=== PATIENT | female | born 1990 | race Caucasian/White ===

== ENCOUNTER 2019-10-03 19:32 | Emergency (ER) | payer OTHER, SELFPAY ==
--- NOTE | ~2019-10-03 | XR_ITS ---
EXAMINATION: XR chest 2V DATE: 10/03/2019 20:25 INDICATION: Left-sided chest pain TECHNIQUE: PA and lateral views of the chest are obtained. COMPARISON: 06/16/2014 FINDINGS: The lungs are free of acute opacities. There is no pleural effusion or pneumothorax. The ca rdiomediastinal silhouette is normal. There is mild thoracic spondylosis. IMPRESSION: 1. No acute cardiopulmonary abnormality. Reviewed, dictated and finalized at location A.
[2019-10-03 19:35] VITALS: BP 156/101; PULSE 108; RESP 18; TEMP 37.2; O2SAT 100
--- NOTE | 2019-10-03 19:39 | ECG_ITS ---
Measurements Intervals [place] Rate: 110 P: 153 ND: 150 QRS: -26 QRSD: 82 T: 149 QT: 270 QTc: 366 Interpretive Statements ECTOPIC ATRIAL TACHYCARDIA CONSIDER HIGH LATERAL INFARCT, AGE INDETERMINATE BASELINE ARTIFACT- II ABNORMAL ECG Electronically Signed On 10-04-2019 7:08:28 CDT by David Avitia D.O.
[2019-10-03 19:46] VITALS: BP 172/100; PULSE 108; RESP 20; O2SAT 96
--- NOTE | 2019-10-03 19:55 | ED.CHESTPAIN ---
HPI - Chest Pain General Chief Complaint: Chest Pain Stated Complaint: chest pain Time Seen by Provider: 10/03/19 19:53 Source: patient Mode of arrival: ambulatory Limitations: no limitations History of Present Illness HPI narrative: Patient is a 29-year-old female who presents for evaluation of chest pain. Patient reports a history intermittent chest pain over the past several years, but has notably had chest pain over the left side of her chest with radiation to the back for the past 8 days. Pain is mostly chronic in nature. Occasionally she will feel short of breath. She denies pleuritic chest pain. She denies leg swelling or pain. No history of blood clot. Patient is not on any control. She does smoke. Patient states she has a history of lung polyps for which her COMPANY MARKER had referred her to a compliance professional for years ago, but she never sought follow-up. Patient denies fever, chills, congestion, no productive cough. Pain is dull, aching in nature, currently present while the patient is in the room. Patient states that her symptoms are worse whenever she is stressed or tearful. Related Data Allergies Allergy/AdvReac Type Severity Reaction Status Date / Time No Known Allergies Allergy Verified 10/03/19 19:45 Review of Systems Review of Systems: Narrative: CONSTITUTIONAL: Denies fever, chills, or sweats. EYES: Denies visual changes ENT: Denies rhinorrhea, congestion, sore throat, or otalgia. CARDIOVASCULAR: Reports chest pain, denies palpitations or edema RESPIRATORY: Reports dry cough, no current shortness of breath GASTROINTESTINAL: Denies abdominal pain, nausea, vomiting, or diarrhea. GENITOURINARY: Denies dysuria or hematuria. SKIN: Denies rash or itching. MUSCULOSKELETAL: Denies back pain, joint pain, or myalgia. NEUROLOGIC: Denies headache, numbness, or weakness. PSYCHIATRIC: Reports history of anxiety [facility] Surgical History Surgical History (Updated 10/03/19 @ 20:08 by Irene Corrales MD) H/O section Hx of cholecystectomy Social History Social History (Updated 10/03/19 @ 20:09 by Irene Corrales MD) Smoking status: Former smoker Tobacco type: cigarettes Smoking end date: 10/01/19 Alcohol intake: current Substance use: current Substance use type: marijuana Living arrangements: with family Gender identity (if verbalized by the patient): Female Exam Narrative: Exam Narrative: GENERAL: Awake, alert, conversant, tearful, anxious HEAD: Normocephalic, atraumatic. EYES: PERRLA and EOMI. ENT: Nares clear, no rhinorrhea or epistaxis. Mucous membranes moist. NECK: Supple. CHEST: No respiratory distress, breathing even and non labored, reproducible left-sided chest wall pain HEART: Regular rate, sinus rhythm ABDOMEN:Non distended, non tender EXTREMITIES: Normal range of motion. No edema. SKIN: Warm, dry, no rash. NEURO:No focal deficits. Alert and oriented x3 Course Vital Signs Vital signs: Vital Signs Temperature 37.2 C 10/03/19 19:35 Pulse Rate 108 H 10/03/19 19:35 Respiratory Rate 18 10/03/19 19:35 Blood Pressure 156/101 H 10/03/19 19:35 Pulse Oximetry 100 10/03/19 19:35 Temperature 37.2 C 10/03/19 19:35 Pulse Rate 108 H 10/03/19 19:46 Respiratory Rate 20 10/03/19 19:46 Blood Pressure 172/100 H 10/03/19 19:46 Pulse Oximetry 96 10/03/19 19:46 MDM - Chest Pain MDM Narrative Medical decision making narrative: Patient's EKG and labs are without significant high risk changes. Cardiac risk factors reviewed. Patient is felt low risk for ACS and reasonable for further risk stratification testing as an outpatient. Pain was not sudden or maximal or onset without tearing or ripping quality. No other signs or symptoms to suggest aortic dissection. A low risk well's criteria is noted, PE is felt to be unlikely, d-dimer not detected. No pneumonia seen on evaluation today. Pt with elevated BP would likely benefit from daily anti hypertensive. Wi
[2019-10-03 20:00] LABS: Basophils Absolute Auto 0.1 K/mm3 (0.0-0.1); Basophils Percent Auto 0.7 % (0.2-1.2); Eosinophils Absolute Auto 0.2 K/mm3 (0-0.3); Hematocrit 44.7 % (37.0-47.0); Hemoglobin 14.5 g/dL (12.0-15.0); Immature Granulocyte Absolute 0.02 K/mm3 (0.00-0.031); Immature Granulocyte Percent A 0.2 % (0-0.5); Lymphocytes Absolute Auto 4.22 K/mm3 (0.9-3.2); Lymphocytes Percent Auto 39.4 % (18.3-44.2); Mean Corpuscular HGB Conc 32.4 g/dl (32-36); Mean Corpuscular Hemoglobin 29.5 pg (26-34); Mean Corpuscular Volume 90.9 fl (80-100); Mean Platelet Volume 9.7 fl (7.4-10.4); Monocytes Absolute Auto 0.7 K/mm3 (0.1-0.6); Monocytes Percent Auto 6.1 % (2.6-8.5); Neutrophils Absolute Auto 5.6 K/mm3 (1.3-6.7); Neutrophils Percent Auto 51.6 % (45.5-73.1); Platelet Count Result 385 k/mm3 (150-375); Red Blood Count 4.92 M/mm3 (4.2-5.4); Red Cell Distribution Width 14.1 % (11.5-14.5); White Blood Count 10.7 K/mm3 (4.5-10.0)
[2019-10-03 20:09] LABS: Prothrombin Time 13.1 Seconds (11.1-14.7)
[2019-10-03 20:10] LABS: Partial Thromboplastin Time 26.7 SECONDS (22.3-36.8)
[2019-10-03 20:12] LABS: Anion Gap 11.9 mmol/L (7-16); Blood Urea Nitrogen 14 mg/dL (7-17); Calcium 9.1 mg/dL (8.4-10.2); Carbon Dioxide 30 mmol/L (22-30); Chloride 99 mmol/L (98-107); Estimated CRCL calculation 87 ml/min; Estimated Glomerular Filt Rate > 60; Glucose 91 mg/dL (65-105); Potassium 3.9 mmol/L (3.4-5.0); Sodium 137 mmol/L (137-145)
[2019-10-03 20:23] LABS: Troponin I < 0.012 ng/mL (0.000-0.034)
[2019-10-03 20:31] LABS: D Dimer 0.27 ug/mL (<0.48)
[2019-10-03] MEDS: ASPIRIN 81 MG CHEWABLE TABLET 324 MG PO (20:43)
[2019-10-03] MEDS: ONDANSETRON INJ 4 MG/2 ML VIAL IV PUSH (20:44)
[2019-10-03] MEDS: SODIUM CHLORIDE 0.9% IV 1,000 ML 999 ML IV CONT (20:44)
[2019-10-03] MEDS: MORPHINE SULFATE 2 MG/ML INJ IV PUSH (20:45)
[2019-10-03 21:26] VITALS: BP 141/100; PULSE 86; RESP 18; O2SAT 98
--- NOTE | 2019-10-07 20:51 | PC.NURSE ---
Late Entry Patient's NS bolus started on 10/03/2019 at 2006 and finished infusing at 2100 on 10/03/2019. Patient received the whole liter of fluids.
== END 2019-10-03 21:28 | disposition home or self-care (01) ==
PROVIDERS: Emergency Provider Emergency Medicine; PCP Internal Medicine
DX: R07.89 Other chest pain (principal); Z87.891 Personal history of nicotine dependence; I47.1 Supraventricular tachycardia; R94.31 Abnormal electrocardiogram [ECG] [EKG]
CPT/HCPCS: 36415; 71046; 80048; 84484; 85025; 85380; 85610; 85730; 93005; 96374; 96375; 99284; A9270; J2270; J2405; J7030

== ENCOUNTER 2024-08-11 17:45 | Emergency (ER) | payer OTHER, SELFPAY ==
--- OUTSIDE RECORDS SUMMARY | 2024-08-11 17:48 | XMS_ITS | Clinical Summary ---
Author Organization [facility] [employer] Address [address] [place] [address] Care Team Providers Care Prep Person Name Role Phone Bayron Choudhary MD Primary Care Provider [phone] Source Comments [facility] [employer],non-owned Affiliates and Associated Physician Practices is amultiple site organization consisting of ambulatory clinics and hospital sitesin [place], [place], [place] and [place]. This disclosure is being madepursuant to the Care Everywhere program and may not contain all information available regarding this patient. Last updated 17.[facility] [employer] Allergies No known active allergies Medications * Be aware that medications may not be up to date on this document. Alwaysverify current medications with the patient. Calcium Carbonate-Lorena min D3 600-400 MG-UNIT Take 1 Tab by mouth once daily Active Nydmmbou-Fgg-E e-FA ( VITAMIN WITH IRON) tablet Take 1 Tab by mouth once daily Active docusate sodium (COLACE) 100 MG capsule Take 1 Cap by mouth 2 times daily 100 Cap 3 7 Active acetaminophen (TYLENOL) 500 MG tablet Take 1,000 mg by mouth every 6 hours as needed for Fever, Pain or Headache Maximum allowable Acetaminophen amount = 4 Grams (4000 mg) / 24 hours. Active raNITIdine (ZANTAC) 150 MG tablet Take 1 Tab by mouth 2 times daily 60 Tab 3 7 Active HYDROXYprogest erone caproate (RAIMUNDO) 250 MG/ML injection Inject 250 mg into muscle every 7 days Active ondansetron, disintegrating , (ZOFRAN ODT) 4 MG tablet Take 1 tablet by mouth every 6 hours as needed for Nausea/Vomiting Allow tablet to dissolve on the tongue 20 tablet 3 7 Active Additional Information Patient not taking.Reported on 02/11/2017 oxyCODONE-acet aminophen (PERCOCET) 5-325 MG tablet Take 1 tablet by mouth every 6 hours as needed for Pain 30 tablet 7 Active oxyCODONE-acet aminophen (PERCOCET) 5-325 MG tablet Take 1 tablet by mouth every 6 hours as needed for Pain 28 tablet 7 Active ibuprofen (MOTRIN) 600 MG tablet Take 1 tablet by mouth every 6 hours as needed for Pain 60 tablet 2 7 Active docusate sodium (COLACE) 100 MG capsule Take 1 capsule by mouth 2 times daily 30 capsule 2 7 Active ferrous sulfate 325 (65 FE) MG tablet Take 1 tablet by mouth daily with breakfast 30 tablet 2 7 Active Vit-Fe Vsp-LY-Pwmcv (PNV PLUS MULTIVIT+DHA) 27-1 & 312 MG MISC Take 1 tablet by mouth once daily 30 Each 11 7 Active polyethylene glycol 3350 (MIRALAX) packet Take 17 g by mouth once daily 30 packet 1 7 Active Blood Pressure Monitoring (BLOOD PRESSURE CUFF) MISC Use 1 device once daily 1 Each 7 Active raNITIdine (ZANTAC) 150 MG tablet Take 1 tablet by mouth 2 times daily 60 tablet 5 7 Active Active Problems Patient Care Coordination No te Formatting of this note migh t be different from the original. [facility] [place] Problem Noted Date Diagnosed Date care following delivery 01/10 Hypertension complicating pr egnancy, delivered, current hospitalization 02/06/2017 Maternal obesity, delivered, current hospitaliza tion 02/06/2017 Hypertension complicating , third trime ster 01/31/2017 Chronic hypertension 01/30/2017 Excessive weight gain during in third trimester 12/13/2016 Cervical cerclage suture present 08/23/2016 Overview (08/23/2016): Modified Olivarez cerclage with knot at 12 o'clock; only one suture is present. Lola Marte MD 08/23/2016 11:49 AM Evaluate anatomy not seen on prior sonogram 04/2016 Obesity during 08/07/2016 Chronic anxiety 08/07/2016 Carpal tunnel syndrome 08/07/2016 Mood disorder 08/07/2016 Overview (08/07/2016): On meds for 3 years, stopped meds on her own Tobacco use 08/07/2016 History of low transverse section 08/07 Overview (01/24/2017): Breech G1 at 24.4 weeks - PTL with PTD History of delivery 08/07/2016 Overview (08/07/2016): G1 at 24.4 weeks - PTL with PTD Depression screen 08/07/2016 Overview (08/07/2016): EPDS score: Supervision of high-risk 07/15/2010 Overview (09/12/2016): BEST: Dr Barnett PNL: A+/I/-/- NR Ab: neg GCT: early 94 CF neg HIV: GBS: Dating: H/H/Plt: Hgb Elec: UDS: QS: CF: Pap: Gc/Chl: UCx: Breast/Bottle: Family Planning: Resolved Problems Problem Noted Date Diagnosed Date Resolved Date Threatened labor 07/15/2010 Elevated AFP 07/15/2010 08/07/2016 Overview (07/15/2010): Normal anatomy, declined amnio 1st trimester Vag. spotting Immunizations Immunization Administration Dates Next Due HEP B VACCINE ADOL/ADULT 2 DOSE 01/17/2009 INFLUENZA VACCINE, QUADR. (F LUZONE; FLULAVAL; FLUARIX; AFLURIA QUADRIVALENT; 6MO+), 0.5 ML (IIV4) 12/06/2016 TDAP (7yrs+) 12/06/2016,07/23/2010 Family History Medical History Relation Name Comments Diabetes Maternal Grandmother Relation Name Status Comments Maternal Grandmother Social History Tobacco Use Types Packs/Day Years Used Date Smoking Tobacco: Former Cigarettes Q uit: 06/23/2016 Smokeless Tobacco: Never Tobacco Cessation:Ready to Q uit: Yes; Counseling Given: Yes Alcohol Use Standard Drinks/Week Comments No 0 (1 standard drink = 0.6 oz pur e alcohol) Comments No Sex and Gender Information Value Date Recorded Sex Assigned at Not on file Legal Sex Female 11:38 AM BLASTING CONTRACT MINER Gender Identity Not on file Sexual Orientation Not on file Last Filed Vital Signs Vital Sign Reading Time Taken Comments Blood Pressure 154/82 02/11/2017 9:39 AM BLASTING CONTRACT MINER manual BP check Pulse 109 02/11/2017 9:32 AM BLASTING CONTRACT MINER Temperature 36.4 C (97.5 F) 02/09/2017 8:15 AM BLASTING CONTRACT MINER Respiratory Rate 18 02/09/2017 12:0 5 PM BLASTING CONTRACT MINER Oxygen Saturation 99% 02/09/2017 8:1 5 AM BLASTING CONTRACT MINER Inhaled Oxygen Concentration - - Weight 150.5 kg (331 lb 12. 8 oz) 02/11/2017 9:32 AM BLASTING CONTRACT MINER Height 162.6 cm (5' 4) 02/06/2017 10:0 0 AM BLASTING CONTRACT MINER Body Mass Index 56.95 02/06/2017 10:00 AM BLASTING CONTRACT MINER Plan of Treatment Health Maintenance Due Date Last Done Comments HIV SCREENING 02/06/2004 HEPATITIS C SCREENING 02/01/2007 HEPATITIS B VACCINE (2 of 3 - 19+ 3-dose series) 02/14/2009 01/17/2009 COVID-19 VACCINE (2023-2 5 season) 2023 DEPRESSION SCREENING 03/11/2024 INFLUENZA VACCINE (Season Ended) 2024 12/06/2016 DTAP/TDAP/TD VACCINES (3 - T d or Tdap) 12/06/2026 12/06/2016, 07/23/2010 ZOSTER VACCINE (1 of 2) 2039 HIB VACCINE Aged Out No longer eligi ble based on patient's age to complete this topic HPV VACCINE Aged Out No longer eligi ble based on patient's age to complete this topic MENINGOCOCCAL (Group B) VACCINE SHARED DECISION-MAKING Aged Out No longer eligible based on patient's age to complete this topic MENINGOCOCCAL GROUPS A/C/Y/W VACCINE Aged Out No longer eligible b ased on patient's age to complete this topic PNEUMOCOCCAL VACCINE Aged Out No long er eligible based on patient's age to complete this topic [place] [address] [address] [place] [address] Advance Directives * Full Code (Latest Code Status on File) Date Activated Date Inactivated Comments 2017 12:18 PM 02/09/2017 1:36 PM * Full Code Date Activated Date Inactivated Comments 01/30/2017 6:02 PM 01/31/2017 1:11 PM * Full Code Date Activated Date Inactivated Comments 01/17/2017 9:39 AM 01/17/2017 2:08 PM * Full Code Date Activated Date Inactivated Comments 11/15/2016 10:17 AM 11/15/2016 2:01 PM * Full Code Date Activated Date Inactivated Comments 07/15/2010 7:04 PM 07/25/2010 4:43 AM Care Teams Prep Person Relationship Specialty Start Date End Date Bayron Choudhary MD [address] [place] [id number] PCP - General Maternal and Medicine 11/15/16
--- OUTSIDE RECORDS SUMMARY | 2024-08-11 17:48 | XMS_ITS | Clinical Summary ---
Author Organization [facility] Address [address] [place] [address] Phone Care Team Providers Care Procurement Internship Name Role Phone Shon Griggs MD Primary Care Provider [phone] Allergies No known active allergies Medications ranitidine (ZANTAC) 150 MG Tablet Take 150 mg by mouth daily. Active HYDROcodone-acet aminophen (NORCO) 5-325 MG Tablet Take 1-2 Tabs by mouth every 4 hours as needed for Pain. 20 Tab 0 01/30/2015 Active LORazepam (ATIVAN) 0.5 MG Tablet Take 0.5 mg by mouth every 6 hours as needed for Anxiety. Active naproxen (NAPROSYN) 500 MG Tablet Take 1 Tab by mouth 2 times daily (with meals). 60 Tab 0 06/23/2015 Active Social History Tobacco Use Types Packs/Day Years Used Date Smoking Tobacco: Every Day Cigarettes Alcohol Use Standard Drinks/Week Comments No 0 (1 standard drink = 0.6 oz pur e alcohol) Comments No Sex and Gender Information Value Date Recorded Sex Assigned at Not on file Legal Sex Female 12:30 AM CDT Gender Identity Not on file Sexual Orientation Not on file Last Filed Vital Signs Vital Sign Reading Time Taken Comments Blood Pressure 126/63 06/23/2015 9:39 AM CDT Pulse 84 06/23/2015 9:39 AM CDT Temperature 36.5 C (97.7 F) 06/23/2015 9:39 AM CDT Respiratory Rate 16 06/23/2015 9:39 AM CDT Oxygen Saturation 99% 06/23/2015 9:39 AM CDT Inhaled Oxygen Concentration - - Weight 83.5 kg (184 lb) 06/23/2015 9:39 AM CDT Height 162.6 cm (5' 4) 06/23/2015 9:39 AM CDT Body Mass Index 31.58 06/23/2015 9:39 AM CDT Plan of Treatment Not on file Insurance MEDICAID [facility] Care Teams Procurement Internship Relationship Specialty Start Date End Date Shon Griggs MD [address] [place] [address] PCP - General Family Medicine 01/30/15
--- OUTSIDE RECORDS SUMMARY | 2024-08-11 17:48 | XMS_ITS | CONTINUITY OF CARE DOCUMENT ---
Author Name samia gracia Address Unknown Organization [facility] Address [address] [place] [address] Phone [phone] Care Team Providers Care Client Experience Consultant Name Role Phone Srinivasan Dick MD Unavailable [phone] Srinivasan Dick MD Unavailable [phone] INSURANCE PROVIDERS Payer name Policy type / Coverage type Elder aguilar [place] [employer] Medicaid 1 [id number]
[2024-08-11 17:52] VITALS: BP 161/76; PULSE 95; RESP 16; TEMP 36.4; O2SAT 100
--- NOTE | 2024-08-11 18:36 | ED_ITS ---
HPI - Anxiety General Chief Complaint: Anxiety Stated Complaint: panic attacks x 2 days, out of meds Time Seen by Provider: 08/11/24 18:34 Source: patient and family Mode of arrival: ambulatory Limitations: no limitations History of Present Illness HPI narrative: Patient presents with concern for panic attacks over the past 2 days. She has a longstanding history of anxiety and had previously been on medication but lost her insurance and has been out of her medication for approximately 1 year. She has been doing okay but recently she has been dealing with more anxiety, difficulty sleeping, and feeling that her ADHD is also unmanaged. She finds herself hyperventilating and with fingers tingling as result. She had an appointment scheduled with a mental health professional but they needed to reschedule it and for this reason her appointment is now on either August 13 or August 14. She usually goes to [facility] but presented there yesterday and they had difficulty drawing her blood and ultimately was not seen or given medications which she understands but she is trying to make it to her appointment and finding it difficult. She has been trying to change her diet. She states she used to be on Vyvanse but also Klonipin 0.5mg BID PRN. Related Data Allergies Allergy/AdvReac Type Severity Reaction Status Date / Time No Known Allergies Allergy Verified 10/03/19 19:45 PMFSH Past Medical History Medical History Anxiety Surgical History Surgical History (Updated 10/03/19 @ 20:08 by Irene Corrales MD) H/O section Hx of cholecystectomy Social History Social History (Updated 10/03/19 @ 20:09 by Irene Corrales MD) Smoking status: Former smoker Tobacco type: cigarettes Smoking end date: 10/01/19 Alcohol intake: current Substance use: current Substance use type: marijuana Living arrangements: with family Gender identity (if verbalized by the patient): Female Exam Narrative: GENERAL: Well-appearing, well-nourished, and in no acute distress. HEAD: Normocephalic, atraumatic. EYES: Non injected, non icteric ENT: Nares clear, no rhinorrhea or epistaxis. Gross auditory acuity intact. NECK: Supple. No meningismus. CHEST: Speaking in full sentences. No respiratory distress. HEART: Regular rate and rhythm. . ABDOMEN: Soft, nondistended. No rigidity or guarding. Not peritoneal EXTREMITIES: Normal range of motion. No lower extremity edema. SKIN: Warm, dry, no rash. NEURO: No focal deficits. Alert and oriented. Answering questions. Following commands. Normal speech without aphasia or dysarthria. PSYCH: Appearance: Well kempt. Behavior: Calm, good eye contact, in no acute distress. Affect: pleasant. Mood is congruent with affect. Speech: Appropriate rate, quantity and volume. Thought process: Linear. Does not appear to be responding to internal stimuli. Cognition: Normal. Insight: Good. Judgment: Good. Course Vital Signs Vital signs: Vital Signs Temperature 97.6 F 08/11/24 17:52 Pulse Rate 95 08/11/24 17:52 Respiratory Rate 16 08/11/24 17:52 Blood Pressure 161/76 H 08/11/24 17:52 Pulse Oximetry 100 08/11/24 17:52 Temperature 97.6 F 08/11/24 17:52 Pulse Rate 95 08/11/24 17:52 Respiratory Rate 16 08/11/24 17:52 Blood Pressure 161/76 H 08/11/24 17:52 Pulse Oximetry 100 08/11/24 17:52 MDM - Anxiety MDM Narrative Medical decision making narrative: Patient presents with report of panic attacks over the past 2 days. She has a history of anxiety, ADHD and lost her insurance and has been out of her medications for 1 year. Her symptoms have become more significant recently and she scheduled appointment with mental health professional but they had to cancel and reschedule her for either August 13 or . In the emergency department she is afebrile with vital signs notable for hypertension. Prescription monitoring database is reviewed which showed she last filled gabapentin in 2023 but no interval fills of any other substances. Weeks insulin discussed all the importance of keeping her upcoming appointment for long-term discussion of her symptoms and best possible management which may include therapy, medications. In the interim, it is reasonable to give a dose of clonazepam and give her a short course of this same medication as a bridge to get her to her longer-term care. She verifies understanding is in agreement with this plan. Stable for discharge. Differential Diagnosis Differential diagnosis: Likely hyperventilation, panic disorder and acute anxiety Discharge Plan Discharge Clinical Impression: Panic attacks, Encounter for medication refill Patient Disposition: Home Condition: Stable Instructions: Antibiotic Form, Anxiety (ED), Panic Attack (ED) Additional Instructions: Keep your upcoming scheduled mental health appointment. As we discussed, this is an important relationship and may be a better strategy for identifying underlying causes of your distress and how to best treat them fdc. If you are need of a primary care physician, the name of 1 is listed below. Return to the emergency department with any new worsening or unmanaged symptoms. Patient Language: Danish Prescriptions: New clonazepam [Klonopin] 0.5 mg tablet 0.5 mg PO BID Qty: 6 0RF No Action hydrochlorothiazide 12.5 mg tablet 12.5 mg PO DAILY 30 Days Qty: 30 0RF Follow-up/Referrals: PHYSICIAN,[facility] CONSULTANT [Primary Care Provider] - Sierra Pham DO [Physician] - Stand Alone Forms: Work/School Release IP Time of Disposition: 19:01
--- OUTSIDE RECORDS SUMMARY | 2024-08-11 18:53 | XMS_ITS | Clinical Summary ---
Author Organization [facility] Address [address] [place] [address] Care Team Providers Care Clinical Data Coordinator Name Role Phone Bayron Choudhary MD Primary Care Provider [phone] Source Comments [facility],non-owned Affiliates and Associated Physician Practices is amultiple site organization consisting of ambulatory clinics and hospital sitesin [place], [place], [place] and [place]. This disclosure is being madepursuant to the Care Everywhere program and may not contain all information available regarding this patient. Last updated 17.[facility] Allergies No known active allergies Medications * Be aware that medications may not be up to date on this document. Alwaysverify current medications with the patient. Calcium Carbonate-Lorena min D3 600-400 MG-UNIT Take 1 Tab by mouth once daily Active Zfeuoksk-Glw-M e-FA ( VITAMIN WITH IRON) tablet Take [...] breakfast 30 tablet 2 7 Active Vit-Fe Kku-NI-Kfcyk (PNV PLUS MULTIVIT+DHA) 27-1 & 312 MG [...] migh t be different from the original. [facility] 08/2016 Problem Noted Date Diagnosed Date care [...] on file Legal Sex Female 11:38 AM CUSTOMER ENGAGEMENT MANAGER Gender Identity Not on file Sexual Orientation Not on file Last Filed Vital Signs Vital Sign Reading Time Taken Comments Blood Pressure 154/82 02/11/2017 9:39 AM CUSTOMER ENGAGEMENT MANAGER manual BP check Pulse 109 02/11/2017 9:32 AM CUSTOMER ENGAGEMENT MANAGER Temperature 36.4 C (97.5 F) 02/09/2017 8:15 AM CUSTOMER ENGAGEMENT MANAGER Respiratory Rate 18 02/09/2017 12:0 5 PM CUSTOMER ENGAGEMENT MANAGER Oxygen Saturation 99% 02/09/2017 8:1 5 AM CUSTOMER ENGAGEMENT MANAGER Inhaled Oxygen Concentration - - Weight 150.5 kg (331 lb 12. 8 oz) 02/11/2017 9:32 AM CUSTOMER ENGAGEMENT MANAGER Height 162.6 cm (5' 4) 02/06/2017 10:0 0 AM CUSTOMER ENGAGEMENT MANAGER Body Mass Index 56.95 02/06/2017 10:00 AM CUSTOMER ENGAGEMENT MANAGER Plan of Treatment Health Maintenance Due Date [...] patient's age to complete this topic [place] [address] [place] [address] Advance Directives * Full Code (Latest Code [...] 7:04 PM 07/25/2010 4:43 AM Care Teams Clinical Data Coordinator Relationship Specialty Start Date End Date Bayron Choudhary MD [address] [place] [id number] PCP - General Maternal and Medicine 11/15/16
--- OUTSIDE RECORDS SUMMARY | 2024-08-11 18:53 | XMS_ITS | Clinical Summary ---
Author Organization [facility] Address [address] [place] [address] Phone Care Team Providers Care Water Systems Engineer Name Role Phone Shon Griggs MD Primary Care Provider [phone] Allergies No known active allergies Medications ranitidine [...] of Treatment Not on file Insurance MEDICAID [facility] Care Teams Water Systems Engineer Relationship Specialty Start Date End Date Shon Griggs MD [address] [place] [address] PCP - General Family Medicine 01/30/15
--- OUTSIDE RECORDS SUMMARY | 2024-08-11 18:53 | XMS_ITS | CONTINUITY OF CARE DOCUMENT ---
Author Name samia gracia Address Unknown Organization [facility] Address [address] [place] [address] Phone [phone] Care Team Providers Care Tracer Clerk Name Role Phone Srinivasan Dick MD Unavailable [phone] Srinivasan Dick MD Unavailable [phone] INSURANCE PROVIDERS Payer name Policy type / Coverage type Elder aguilar [place] [employer] Medicaid 1 [id number]
[2024-08-11] MEDS: clonazePAM (*CRX) 0.5 MG TABLET PO (19:03)
== END 2024-08-11 19:10 | disposition home or self-care (01) ==
PROVIDERS: Emergency Provider Student in an Organized Health Care Education/Training Program
DX: F41.0 Panic disorder [episodic paroxysmal anxiety] (principal); F41.9 Anxiety disorder, unspecified; Z87.891 Personal history of nicotine dependence; F12.90 Cannabis use, unspecified, uncomplicated
CPT/HCPCS: 99283; A9270

== ENCOUNTER 2024-09-09 12:37 | Emergency (ER) | payer BC, SELFPAY ==
[2024-09-09] VITALS (15 sets, daily range): BP systolic 102–170; BP diastolic 65–111; PULSE 96–124; RESP 18–20; TEMP 36.6–36.7; O2SAT 98–100
--- NOTE | ~2024-09-09 | US_ITS ---
EXAMINATION TYPE: US breast LT limited COMPARISON: NONE REASON FOR STUDY: lump, rule out infection TECHNIQUE: Targeted sonographic evaluation of the left breast was performed. INTERPRETATION: Sonographic imaging was performed at the area of clinical concern at the left breast 2:00-3:00 positi ons. No solid or cystic lesion identified. No evidence for abscess. No sonographic abnormality seen. IMPRESSION: No sonographic abnormality seen in the region scanned in the left breast. BI-RADS CATEGORY: BI-RADS 1: Negative Reviewed, dictated and finalized at location .
--- NOTE | ~2024-09-09 | XR_ITS ---
CHEST RADIOGRAPH, PA AND LATERAL CLINICAL HISTORY: chest pain . COMPARISON: 10/03/2019 and 06/16/2024 TECHNIQUE: PA and lateral views of the chest. FINDINGS The cardiomediastinal silhouette is unremarkable. A well-circumscribed 12 mm nodule within the right mid to lower lung field, likely a calcified granul luis, unchanged from 2020 examination. The remainder of the lungs are clear. IMPRESSION: Calcified granuloma, without focal infiltrate or effusion. If clinical suspicion persists, cross-sectional imaging (noncontrast enhanced CT examination of the c hest) is suggested for further evaluation. Reviewed, dictated and finalized at location A. IMPRESSION: Calcified granuloma, without focal infiltrate or effusion. If clinical suspicion persists, cross-sectional imaging (noncontrast enhanced C T examination of the chest) is suggested for further evaluation.
--- NOTE | 2024-09-09 12:42 | ECG_ITS ---
Test Date: 2024-09-09 12:45:05 Measurements Intervals [place] Rate: 101 P: 36 OK: 137 QRS: -9 QRSD: 73 T: 49 QT: 331 QTc: 430 Interpretive Statements SINUS TACHYCARDIA POSSIBLE LEFT ATRIAL ENLARGEMENT [-0.1mV P WAVE IN V1/V2] ABNORMAL RHYTHM ECG No previous ECG available for comparison Electronically Signed On 09-10-2024 16:31:15 CDT by Fatou Rodriguez
--- OUTSIDE RECORDS SUMMARY | 2024-09-09 12:42 | XMS_ITS | Clinical Summary ---
Author Organization [facility] Address [address] [place] [address] Phone Care Team Providers Care Inspector Floor Name Role Phone Shon Griggs MD Primary Care Provider [phone] Allergies No known active allergies Medications ranitidine [...] of Treatment Not on file Insurance MEDICAID [facility] Care Teams Inspector Floor Relationship Specialty Start Date End Date Shon Griggs MD [address] [place] [address] PCP - General Family Medicine 01/30/15
--- OUTSIDE RECORDS SUMMARY | 2024-09-09 12:42 | XMS_ITS | Clinical Summary ---
Author Organization [facility] Address [address] [place] [address] Care Team Providers Care Vice President Media Relations Name Role Phone Bayron Choudhary MD Primary Care Provider [phone] Source Comments [facility],non-owned Affiliates and Associated Physician Practices is amultiple site organization consisting of ambulatory clinics and hospital sitesin [place], [place], [place] and [place]. This disclosure is being madepursuant to the Care Everywhere program and may not contain all information available regarding this patient. Last updated 17.[facility] Allergies No known active allergies Medications * Be aware that medications may not be up to date on this document. Alwaysverify current medications with the patient. Calcium Carbonate-Lorena min D3 600-400 MG-UNIT Take 1 Tab by mouth once daily Active Bjlukndm-Vio-N e-FA ( VITAMIN WITH IRON) tablet Take [...] breakfast 30 tablet 2 7 Active Vit-Fe Zpp-PI-Peyru (PNV PLUS MULTIVIT+DHA) 27-1 & 312 MG [...] migh t be different from the original. [facility] 08/2016 Problem Noted Date Diagnosed Date care [...] on file Legal Sex Female 11:38 AM TRANSFER KNITTER Gender Identity Not on file Sexual Orientation Not on file Last Filed Vital Signs Vital Sign Reading Time Taken Comments Blood Pressure 154/82 02/11/2017 9:39 AM TRANSFER KNITTER manual BP check Pulse 109 02/11/2017 9:32 AM TRANSFER KNITTER Temperature 36.4 C (97.5 F) 02/09/2017 8:15 AM TRANSFER KNITTER Respiratory Rate 18 02/09/2017 12:0 5 PM TRANSFER KNITTER Oxygen Saturation 99% 02/09/2017 8:1 5 AM TRANSFER KNITTER Inhaled Oxygen Concentration - - Weight 150.5 kg (331 lb 12. 8 oz) 02/11/2017 9:32 AM TRANSFER KNITTER Height 162.6 cm (5' 4) 02/06/2017 10:0 0 AM TRANSFER KNITTER Body Mass Index 56.95 02/06/2017 10:00 AM TRANSFER KNITTER Plan of Treatment Health Maintenance Due Date [...] patient's age to complete this topic [place] [address] [place] [address] Advance Directives * Full Code (Latest Code [...] 7:04 PM 07/25/2010 4:43 AM Care Teams Vice President Media Relations Relationship Specialty Start Date End Date Bayron Choudhary MD [address] [place] [id number] PCP - General Maternal and Medicine 11/15/16
[2024-09-09 12:59] LABS: Hematocrit 43.4 % (37.0-47.0); Hemoglobin 14.2 g/dL (12.0-15.0); Immature Granulocyte Percent A 0.1 % (0-0.5); Lymphocytes Absolute Auto 2.40 K/mm3 (0.9-3.2); Mean Corpuscular HGB Conc 32.7 g/dl (32-36); Mean Corpuscular Hemoglobin 29.3 pg (26-34); Mean Corpuscular Volume 89.5 fl (80-100); Nucleated Red Blood Cells Absolute Auto 0.000 K/mm3 (0.0-0.012); Nucleated Red Blood Cells Perc 0.0 % (0.0-0.2); Platelet Count Result 397 k/mm3 (150-375); Red Blood Count 4.85 M/mm3 (4.2-5.4); White Blood Count 7.8 K/mm3 (4.5-10.0)
[2024-09-09 13:11] LABS: INR 1.0; Prothrombin Time 13.1 Seconds (11.1-14.7)
[2024-09-09 13:12] LABS: Alanine Aminotransferase 28 U/L (6-35); Albumin Level 4.6 g/dL (3.5-5.1); Alkaline Phosphatase 61 U/L (38-126); Anion Gap 11 mmol/L (4-12); Aspartate Amino Transferase 28 U/L (14-36); Bilirubin,Total 0.3 mg/dL (0.2-1.3); Blood Urea Nitrogen 13 mg/dL (7-17); Calcium 9.4 mg/dL (8.4-10.2); Carbon Dioxide 24 mmol/L (22-30); Chloride 104 mmol/L (98-107); Estimated CRCL calculation 107 ml/min; Estimated Glomerular Filt Rate > 60; Glucose 95 mg/dL (65-110); Lipase 66 U/L (23-300); Partial Thromboplastin Time 24.9 Seconds (22.3-36.8); Potassium 4.0 mmol/L (3.4-5.0); Sodium 139 mmol/L (137-145); Total Protein 8.1 g/dL (6.3-8.2)
--- OUTSIDE RECORDS SUMMARY | 2024-09-09 13:14 | XMS_ITS | Clinical Summary ---
Author Organization [facility] Address [address] [place] [address] Care Team Providers Care Stunt Person Name Role Phone Bayron Choudhary MD Primary Care Provider [phone] Source Comments [facility],non-owned Affiliates and Associated Physician Practices is amultiple site organization consisting of ambulatory clinics and hospital sitesin [place], [place], [place] and [place]. This disclosure is being madepursuant to the Care Everywhere program and may not contain all information available regarding this patient. Last updated 17.[facility] Allergies No known active allergies Medications * Be aware that medications may not be up to date on this document. Alwaysverify current medications with the patient. Calcium Carbonate-Lorena min D3 600-400 MG-UNIT Take 1 Tab by mouth once daily Active Evzzreme-Map-W e-FA ( VITAMIN WITH IRON) tablet Take [...] breakfast 30 tablet 2 7 Active Vit-Fe Cup-JP-Izjnv (PNV PLUS MULTIVIT+DHA) 27-1 & 312 MG [...] migh t be different from the original. [facility] 08/2016 Problem Noted Date Diagnosed Date care [...] on file Legal Sex Female 11:38 AM DATA COLLECTION INTERVIEWER Gender Identity Not on file Sexual Orientation Not on file Last Filed Vital Signs Vital Sign Reading Time Taken Comments Blood Pressure 154/82 02/11/2017 9:39 AM DATA COLLECTION INTERVIEWER manual BP check Pulse 109 02/11/2017 9:32 AM DATA COLLECTION INTERVIEWER Temperature 36.4 C (97.5 F) 02/09/2017 8:15 AM DATA COLLECTION INTERVIEWER Respiratory Rate 18 02/09/2017 12:0 5 PM DATA COLLECTION INTERVIEWER Oxygen Saturation 99% 02/09/2017 8:1 5 AM DATA COLLECTION INTERVIEWER Inhaled Oxygen Concentration - - Weight 150.5 kg (331 lb 12. 8 oz) 02/11/2017 9:32 AM DATA COLLECTION INTERVIEWER Height 162.6 cm (5' 4) 02/06/2017 10:0 0 AM DATA COLLECTION INTERVIEWER Body Mass Index 56.95 02/06/2017 10:00 AM DATA COLLECTION INTERVIEWER Plan of Treatment Health Maintenance Due Date [...] patient's age to complete this topic [place] [address] [address] [place] [address] Advance Directives * Full Code (Latest Code [...] 7:04 PM 07/25/2010 4:43 AM Care Teams Stunt Person Relationship Specialty Start Date End Date Bayron Choudhary MD [address] [place] [id number] PCP - General Maternal and Medicine 11/15/16
--- OUTSIDE RECORDS SUMMARY | 2024-09-09 13:14 | XMS_ITS | Clinical Summary ---
Author Organization [facility] Address [address] [place] [address] Phone Care Team Providers Care Cancer Researcher Name Role Phone Shon Griggs MD Primary Care Provider [phone] Allergies No known active allergies Medications ranitidine [...] of Treatment Not on file Insurance MEDICAID [facility] Care Teams Cancer Researcher Relationship Specialty Start Date End Date Shon Griggs MD [address] [place] [address] PCP - General Family Medicine 01/30/15
[2024-09-09] MEDS: ASPIRIN 81 MG CHEWABLE TABLET 324 MG PO (13:16)
[2024-09-09 13:24] LABS: Troponin I < 0.012 ng/mL (0.000-0.034)
[2024-09-09] MEDS: KETOROLAC 15 MG/ML VIAL (*BKC) IV PUSH (14:06)
[2024-09-09 14:08] LABS: Troponin I < 0.012 ng/mL (0.000-0.034)
[2024-09-09 14:15] LABS: Add Urine Microscopic? NO; Appearance Urine Clear (Clear); Glucose Urine UA Negative (Negative); Leukocyte Esterase Ur Negative LEU/UL (Negative); Nitrate Urine Negative (Negative); Specific Grav Ur 1.007 (1.001-1.035)
--- NOTE | 2024-09-09 14:24 | ED_ITS ---
HPI - Chest Pain General Chief Complaint: Chest Pain Stated Complaint: all over pain Time Seen by Provider: 09/09/24 13:04 History of Present Illness HPI narrative: Patient is a 34-year-old female who presents to the ER with chest pain. She reports it starts across her upper chest and radiates down to her left armpit and up to her left shoulder and jaw. Patient reports the symptoms have been going on for approximately 6 months but have worsened significantly over the past week. She endorses a history of anxiety, IBS, high blood pressure, high cholesterol. Patient reports she took ibuprofen this morning without much relief. She reports she vapes but does not smoke cigarettes. Patient reports she recently quit using marijuana. She endorses throbbing pain down her left arm. Patient denies consumption of energy drinks or reports she drinks about 1-2 cups of coffee per day. She reports she had a bowel movement yesterday and was normal for her. Patient denies shortness of breath, recent fevers, back pain, or urinary symptoms. Related Data Allergies Allergy/AdvReac Type Severity Reaction Status Date / Time No Known Allergies Allergy Verified 09/09/24 12:41 Review of Systems 2 Review of Systems: All systems reviewed & are unremarkable except as noted in HPI and below PMFSH Past Medical History Medical History Anxiety Surgical History Surgical History H/O section Hx of cholecystectomy Social History Social History Smoking status: Former smoker Tobacco type: cigarettes Smoking end date: 10/01/19 Alcohol intake: current Substance use: current Substance use type: marijuana Living arrangements: with family Gender identity (if verbalized by the patient): Female Exam 2 Narrative: GENERAL: Well appearing, well-nourished, non-toxic, in no acute distress. HEAD: Normocephalic, atraumatic. NECK: Supple. No adenopathy, no masses. RESPIRATORY: Airway patent, respirations nonlabored. Clear to auscultation bilaterally, no rales, rhonchi, wheezing. CARDIOVASCULAR: Regular rate and rhythm without murmurs, rubs, or gallops. Peripheral pulses 2+ and equal bilaterally. ABDOMINAL: Soft, nontender, nondistended, no hepatosplenomegaly. Normoactive BS. MUSCULOSKELETAL: Moves all extremities. Strength/ROM intact without gross deformities. SKIN: Warm, dry, normal color. No rashes. Small (1 cm) palpable lump in pt's L breast approximately 1 inch from the nipple in the 2pm position NEURO: A&O X3. Speech clear. Cranial nerves II-XII intact. No ataxic movements. PSYCHIATRIC: Appropriate mood and affect. Normal interaction. Course Vital Signs Vital signs: Vital Signs Temperature 36.6 C 09/09/24 12:39 Pulse Rate 124 H 09/09/24 12:39 Respiratory Rate 20 09/09/24 12:39 Blood Pressure 170/111 H 09/09/24 12:39 Pulse Oximetry 98 09/09/24 12:39 Oxygen Delivery Room Air 09/09/24 12:39 Temperature 36.7 C 09/09/24 13:18 Pulse Rate 96 09/09/24 13:18 Respiratory Rate 18 09/09/24 13:18 Blood Pressure 129/73 09/09/24 16:47 Pulse Oximetry 99 09/09/24 16:47 Oxygen Delivery Room Air 09/09/24 12:39 MDM - Chest Pain MDM Narrative Medical decision making narrative: Patient is a 34-year-old female who presents to the ER with chest pain. She reports it starts across her upper chest and radiates down to her left armpit and up to her left shoulder and jaw. Patient reports the symptoms have been going on for approximately 6 months but have worsened significantly over the past week. She endorses a history of anxiety, IBS, high blood pressure, high cholesterol. Patient reports she took ibuprofen this morning without much relief. She reports she vapes but does not smoke cigarettes. Patient reports she recently quit using marijuana. She endorses throbbing pain down her left arm. Patient denies consumption of energy drinks or reports she drinks about 1-2 cups of coffee per day. She reports she had a bowel movement yesterday and was normal for her. Patient denies shortness of breath, recent fevers, back pain, or urinary symptoms. She reports she is on Seroquel. Labs Ordered: CBC, CMP, TSH, troponin, UA, UDS, PTT, INR, D-dimer, lipase Imaging Ordered: Chest x-ray, ultrasound left breast Medications Ordered: Toradol 15mg IV Results: Patient's CBC, CMP, troponin, PTT, INR, D-dimer, and lipase are all within normal limits. Her UA did not indicate concerns for urinary tract infection. Patient's UDS was positive for marijuana, for which she admits to using recently. Diagnosis: atypical chest pain, L breast cyst Risks: HEART score: low risk HEART Score for Major Cardiac Events from [employer] on 09/09/2024 All calculations should be rechecked by clinician prior to use RESULT SUMMARY: 1 points Low Score (0-3 points) Risk of MACE of 0.9-1.7%. INPUTS: History ?> 0 = Slightly suspicious EKG ?> 0 = Normal Age ?> 0 = <45 Risk factors ?> 1 = 1-2 risk factors Initial troponin ?> 0 = <=Normal limit Patient Education/Shared MDM: Results of lab work and imaging shared with patient. She endorses mild improvement of symptoms following medication administration. It was explained to pt that her US results may not be back today and she can follow-up with her PCP. Patient strongly advised to maintain hydration status upon discharge and follow-up with their PCP as soon as possible. She reports she thinks her pain may be more muscular because it gets better or worse sometimes when she moves her arm. Pt advised to use Tylenol, Ibuprofen and a muscle relaxant at home to see if this helps relieve the pain. Pt will be discharged home with a prescription for Flexeril and Ibuprofen. She will not be sent home with a prescription for Hydroxyzine because there is increased risk of elongated QT when combined with Seroquel. Strict return precautions provided. Patient verbalized understanding and is in agreement with plan. Vital signs stable at time of discharge. All questions answered. Differential Diagnosis Differential diagnosis: Likely atypical chest pain, st elevation myocardial infarction and chest pain Lab Data Attestation: I reviewed the patient's lab results. 09/09/24 12:53 09/09/24 12:53 Labs: Lab Results 09/09/24 09/09/24 09/09/24 Range/Units 12:52 12:53 13:40 WBC 7.8 (4.5-10.0) K/mm3 RBC 4.85 (4.2-5.4) M/mm3 Hgb 14.2 (12.0-15.0) g/dL Hct 43.4 (37.0-47.0) % MCV 89.5 (80-100) fl MCH 29.3 (26-34) pg MCHC 32.7 (32-36) g/dl RDW 13.2 (11.5-14.5) % Plt Count 397 H (150-375) k/mm3 MPV 9.2 (7.4-10.4) fl Immature Gran % (Auto) 0.1 (0-0.5) % Neut % (Auto) 61.5 (45.5-73.1) % Lymph % (Auto) 30.8 (18.3-44.2) % [place] % (Auto) 6.0 (2.6-8.5) % Eos % (Auto) 1.2 (0-4.4) % Baso % (Auto) 0.4 (0.2-1.2) % Lymph # (Auto) 2.40 (0.9-3.2) K/mm3 [place] # (Auto) 0.5 (0.1-0.6) K/mm3 Eos # (Auto) 0.1 (0-0.3) K/mm3 Baso # (Auto) 0.0 (0.0-0.1) K/mm3 Abs Immat Gran (auto) 0.01 (0.00-0.031) K/mm3 Absolute Neuts (auto) 4.8 (1.3-6.7) K/mm3 Absolute Nucleated RBC 0.000 (0.0-0.012) K/mm3 Nucleated RBC % 0.0 (0.0-0.2) % PT 13.1 (11.1-14.7) Seconds INR 1.0 APTT 24.9 (22.3-36.8) Seconds D-Dimer 0.30 (<0.48) ug/mL Sodium 139 (137-145) mmol/L Potassium 4.0 (3.4-5.0) mmol/L Chloride 104 (98-107) mmol/L Carbon Dioxide 24 (22-30) mmol/L Anion Gap 11 (4-12) mmol/L BUN 13 (7-17) mg/dL Creatinine 0.81 (0.7-1.0) mg/dL Estim Creat Clear Calc 107 ml/min Estimated GFR > 60 (59 - ) Glucose 95 (65-110) mg/dL Calcium 9.4 (8.4-10.2) mg/dL Total Bilirubin 0.3 (0.2-1.3) mg/dL AST 28 (14-36) U/L ALT 28 (6-35) U/L Alkaline Phosphatase 61 (38-126) U/L Troponin I < 0.012 < 0.012 (0.000-0.034) ng/mL Total Protein 8.1 (6.3-8.2) g/dL Albumin 4.6 (3.5-5.1) g/dL Lipase 66 (23-300) U/L TSH (Reflex) 0.986 (0.465-4.68) uIU/mL Urine Color (Yellow) Urine Appearance (Clear) Urine pH (5.0-9.0) Ur Specific [place] (1.001-1.035) Urine Protein (Negative) mg/dL Urine Glucose (UA) (Negative) mg/dL Urine Ketones (Negative) mg/dL Ur Blood (Man) (Negative) Urine Nitrate (Negative) Urine Bilirubin (Negative) Urine Urobilinogen (<2.0) mg/dL Leukocyte Esterase Rfl (Negative) TABATHA/UL Urine Opiates Screen (Negative) Urine Methadone Screen (Negative) Ur Barbiturates Screen (Negative) Ur Phencyclidine Scrn (Negative) Ur Amphetamine Screen (Negative) U Benzodiazepines Scrn (Negative) Urine Cocaine Screen (Negative) U Cannabinoids Screen (Negative) 09/09/24 Range/Units 14:00 WBC (4.5-10.0) K/mm3 RBC (4.2-5.4) M/mm3 Hgb (12.0-15.0) g/dL Hct (37.0-47.0) % MCV (80-100) fl MCH (26-34) pg MCHC (32-36) g/dl RDW (11.5-14.5) % Plt Count (150-375) k/mm3 MPV (7.4-10.4) fl Immature Gran % (Auto) (0-0.5) % Neut % (Auto) (45.5-73.1) % Lymph % (Auto) (18.3-44.2) % [place] % (Auto) (2.6-8.5) % Eos % (Auto) (0-4.4) % Baso % (Auto) (0.2-1.2) % Lymph # (Auto) (0.9-3.2) K/mm3 [place] # (Auto) (0.1-0.6) K/mm3 Eos # (Auto) (0-0.3) K/mm3 Baso # (Auto) (0.0-0.1) K/mm3 Abs Immat Gran (auto) (0.00-0.031) K/mm3 Absolute Neuts (auto) (1.3-6.7) K/mm3 Absolute Nucleated RBC (0.0-0.012) K/mm3 Nucleated RBC % (0.0-0.2) % PT (11.1-14.7) Seconds INR APTT (22.3-36.8) Seconds D-Dimer (<0.48) ug/mL Sodium (137-145) mmol/L Potassium (3.4-5.0) mmol/L Chloride (98-107) mmol/L Carbon Dioxide (22-30) mmol/L Anion Gap (4-12) mmol/L BUN (7-17) mg/dL Creatinine (0.7-1.0) mg/dL Estim Creat Clear Calc ml/min Estimated GFR (59 - ) Glucose (65-110) mg/dL Calcium (8.4-10.2) mg/dL Total Bilirubin (0.2-1.3) mg/dL AST (14-36) U/L ALT (6-35) U/L Alkaline Phosphatase (38-126) U/L Troponin I (0.000-0.034) ng/mL Total Protein (6.3-8.2) g/dL Albumin (3.5-5.1) g/dL Lipase (23-300) U/L TSH (Reflex) (0.465-4.68) uIU/mL Urine Color Yellow (Yellow) Urine Appearance Clear (Clear) Urine pH 5.5 (5.0-9.0) Ur Specific [place] 1.007 (1.001-1.035) Urine Protein Negative (Negative) mg/dL Urine Glucose (UA) Negative (Negative) mg/dL Urine Ketones Negative (Negative) mg/dL Ur Blood (Man) Negative (Negative) Urine Nitrate Negative (Negative) Urine Bilirubin Negative (Negative) Urine Urobilinogen 0.2 (<2.0) mg/dL Leukocyte Esterase Rfl Negative (Negative) TABATHA/UL Urine Opiates Screen Negative (Negative) Urine Methadone Screen Negative (Negative) Ur Barbiturates Screen Negative (Negative) Ur Phencyclidine Scrn Negative (Negative) Ur Amphetamine Screen Negative (Negative) U Benzodiazepines Scrn Negative (Negative) Urine Cocaine Screen Negative (Negative) U Cannabinoids Screen Positive A (Negative) Imaging Data Attestation: I personally reviewed and interpreted this imaging study as follows: Radiologist's impression: Impressions Chest X-Ray 09/09/24 13:47 IMPRESSION: Calcified granuloma, without focal infiltrate or effusion. If clinical suspicion persists, cross-sectional imaging (noncontrast enhanced CT examination of the chest) is suggested for further evaluation. Discharge Plan Discharge Clinical Impression: Atypical chest pain, Costalchondritis, Anxiety, Chest pain, muscular Patient Disposition: Home Condition: Stable Instructions: Antibiotic Form, Costochondritis (ED), Noncardiac Chest Pain (ED) Additional Instructions: Please return to the ER with any worsening symptoms. Follow-up with primary care provider as soon as possible. Take all medications as prescribed, including regularly scheduled medications. You may take Tylenol and ibuprofen together for pain control at home. If you take the muscle relaxants please make sure you are not driving afterwards. Patient Language: Botswanan Prescriptions: New ibuprofen 800 mg tablet 800 mg PO TID PRN (Reason: pain) Qty: 60 0RF cyclobenzaprine 5 mg tablet 5 mg PO TID PRN (Reason: muscle spasm) Qty: 21 0RF No Action hydrochlorothiazide 12.5 mg tablet 12.5 mg PO DAILY 30 Days Qty: 30 0RF clonazepam [Klonopin] 0.5 mg tablet 0.5 mg PO BID Qty: 6 0RF Follow-up/Referrals: PHYSICIAN,BOOK REPAIRER [Primary Care Provider] - Time of Disposition: 17:22
[2024-09-09 14:33] LABS: Cannabinoid Screen Urine Positive (Negative)
[2024-09-09 14:34] LABS: Thyroid Stimulating Hormone Reflex 0.986 uIU/mL (0.465-4.68)
== END 2024-09-09 17:46 | disposition home or self-care (01) ==
PROVIDERS: Emergency Medicine; Emergency Provider Registered Nurse
DX: M94.0 Chondrocostal junction syndrome [Tietze] (principal); R07.89 Other chest pain; F41.9 Anxiety disorder, unspecified; I10 Essential (primary) hypertension; E78.00 Pure hypercholesterolemia, unspecified; K58.9 Irritable bowel syndrome, unspecified; F17.290 Nicotine dependence, other tobacco product, uncomplicated; Z79.899 Other long term (current) drug therapy
CPT/HCPCS: 36415; 71046; 76642; 80053; 80307; 81003; 83690; 84443; 84484; 85025; 85380; 85610; 85730; 93005; 96374; 99284; A9270; J1885

== ENCOUNTER 2025-02-12 12:49 | Emergency (ER) | payer BC, SELFPAY ==
[2025-02-12 13:03] VITALS: BP 148/73; PULSE 93; RESP 20; TEMP 36.9; O2SAT 99
[2025-02-12 13:40] VITALS: BP 133/76; PULSE 79; RESP 14; O2SAT 100
[2025-02-12 13:52] LABS: Hematocrit 41.0 % (37.0-47.0); Hemoglobin 13.3 g/dL (12.0-15.0); Immature Granulocyte Percent A 0.2 % (0-0.5); Lymphocytes Absolute Auto 1.79 K/mm3 (0.9-3.2); Mean Corpuscular HGB Conc 32.4 g/dl (32-36); Mean Corpuscular Hemoglobin 29.2 pg (26-34); Mean Corpuscular Volume 89.9 fl (80-100); Nucleated Red Blood Cells Absolute Auto 0.000 K/mm3 (0.0-0.012); Nucleated Red Blood Cells Perc 0.0 % (0.0-0.2); Platelet Count Result 374 k/mm3 (150-375); Red Blood Count 4.56 M/mm3 (4.2-5.4); White Blood Count 6.5 K/mm3 (4.5-10.0)
[2025-02-12 14:15] LABS: Alanine Aminotransferase 28 U/L (6-35); Albumin Level 4.5 g/dL (3.5-5.1); Alkaline Phosphatase 73 U/L (38-126); Anion Gap 5 mmol/L (4-12); Aspartate Amino Transferase 32 U/L (14-36); Bilirubin,Total 0.4 mg/dL (0.2-1.3); Blood Urea Nitrogen 11 mg/dL (7-17); Calcium 8.8 mg/dL (8.4-10.2); Carbon Dioxide 26 mmol/L (22-30); Chloride 106 mmol/L (98-107); Estimated CRCL calculation 115 ml/min; Estimated Glomerular Filt Rate > 60; Glucose 96 mg/dL (65-110); Potassium 4.0 mmol/L (3.4-5.0); Sodium 137 mmol/L (137-145); Total Protein 7.9 g/dL (6.3-8.2)
--- NOTE | 2025-02-12 15:21 | ED_ITS ---
HPI - General Adult General Chief complaint: Recheck/Abnormal Lab/Rx Stated complaint: hypertension Time Seen by Provider: 02/12/25 12:59 Source: patient and family Mode of arrival: ambulatory Limitations: no limitations History of Present Illness HPI narrative: 35-year-old with a history of hypertension presents to the ER with a complains of elevated blood pressure. Patient states that she was on hydrochlorothiazide for her blood pressure which she was unable to tolerate she discontinued on no hormone and during this process she lost to initiate and pain now she did get the insurance back. Patient states that I am she has been having flashes in her left eye. So director call this morning and was told that she has blood around the optic nerve and he is scheduled for MRI in in a week's time. She presently denies any visual loss. No history of headache or chest pain. Onset (ago): unknown Severity: mild Related Data Allergies Allergy/AdvReac Type Severity Reaction Status Date / Time No Known Allergies Allergy Verified 02/12/25 13:08 Review of Systems 2 Review of Systems: All systems reviewed & are unremarkable except as noted in HPI and below Constitutional: Constitutional: Reports no additional constitutional complaints Eyes: Eyes: Reports as per HPI ENT: Reports system reviewed and no additional complaints, except as documented Cardiovascular: Cardiovascular: Reports no additional cardiovascular complaints Respiratory: Respiratory: Reports no additional respiratory complaints Gastrointestinal: Gastrointestinal: Reports no additional gastrointestinal complaints Genitourinary: Genitourinary: Reports no additional female genitourinary complaints Musculoskeletal: Musculoskeletal: Reports no additional musculoskeletal complaints PMFSH Past Medical History Medical History Anxiety Surgical History Surgical History H/O section Hx of cholecystectomy Social History Social History Smoking status: Former smoker Tobacco type: cigarettes Smoking end date: 10/01/19 Alcohol intake: current Substance use: current Substance use type: marijuana Living arrangements: with family Gender identity (if verbalized by the patient): Female Exam 2 Narrative: GENERAL: Well-appearing, well-nourished, and in no acute distress. HEAD: Normocephalic, atraumatic. EYES: PERRLA and EOMI. ENT: Nares clear, no rhinorrhea or epistaxis. Mucous membranes moist. NECK: Supple. CHEST: Clear to auscultation. No respiratory distress. HEART: Regular rate and rhythm. No murmur heard. Normal peripheral pulses. EXTREMITIES: Normal range of motion. No edema. SKIN: Warm, dry, no rash. NEURO: No focal deficits. Alert and oriented x3. PSYCH: Normal mood and affect. Course Course Emergency Course: Informed patient about her lab work. Advised her to take lisinopril 10 mg daily. Follow up with her PMD . Vital Signs Vital signs: Vital Signs Temperature 36.9 C 02/12/25 13:03 Pulse Rate 93 02/12/25 13:03 Respiratory Rate 20 02/12/25 13:03 Blood Pressure 148/73 H 02/12/25 13:03 Pulse Oximetry 99 02/12/25 13:03 Oxygen Delivery Room Air 02/12/25 13:03 Temperature 36.9 C 02/12/25 13:03 Pulse Rate 79 02/12/25 13:40 Respiratory Rate 14 02/12/25 13:40 Blood Pressure 133/76 02/12/25 13:40 Pulse Oximetry 100 02/12/25 13:40 Oxygen Delivery Room Air 02/12/25 13:03 MDM Differential Diagnosis Differential Diagnosis: hypertensive emergency, hypertensive crisis Lab Data 02/12/25 13:48 02/12/25 13:48 Labs: Lab Results 02/12/25 Range/Units 13:48 WBC 6.5 (4.5-10.0) K/mm3 RBC 4.56 (4.2-5.4) M/mm3 Hgb 13.3 (12.0-15.0) g/dL Hct 41.0 (37.0-47.0) % MCV 89.9 (80-100) fl MCH 29.2 (26-34) pg MCHC 32.4 (32-36) g/dl RDW 13.6 (11.5-14.5) % Plt Count 374 (150-375) k/mm3 MPV 9.3 (7.4-10.4) fl Immature Gran % (Auto) 0.2 (0-0.5) % Neut % (Auto) 62.0 (45.5-73.1) % Lymph % (Auto) 27.7 (18.3-44.2) % [place] % (Auto) 5.9 (2.6-8.5) % Eos % (Auto) 3.4 (0-4.4) % Baso % (Auto) 0.8 (0.2-1.2) % Lymph # (Auto) 1.79 (0.9-3.2) K/mm3 [place] # (Auto) 0.4 (0.1-0.6) K/mm3 Eos # (Auto) 0.2 (0-0.3) K/mm3 Baso # (Auto) 0.1 (0.0-0.1) K/mm3 Abs Immat Gran (auto) 0.01 (0.00-0.031) K/mm3 Absolute Neuts (auto) 4.0 (1.3-6.7) K/mm3 Absolute Nucleated RBC 0.000 (0.0-0.012) K/mm3 Nucleated RBC % 0.0 (0.0-0.2) % Sodium 137 (137-145) mmol/L Potassium 4.0 (3.4-5.0) mmol/L Chloride 106 (98-107) mmol/L Carbon Dioxide 26 (22-30) mmol/L Anion Gap 5 (4-12) mmol/L BUN 11 (7-17) mg/dL Creatinine 0.69 L (0.7-1.0) mg/dL Estim Creat Clear Calc 115 ml/min Estimated GFR > 60 (59 - ) Glucose 96 (65-110) mg/dL Calcium 8.8 (8.4-10.2) mg/dL Total Bilirubin 0.4 (0.2-1.3) mg/dL AST 32 (14-36) U/L ALT 28 (6-35) U/L Alkaline Phosphatase 73 (38-126) U/L Total Protein 7.9 (6.3-8.2) g/dL Albumin 4.5 (3.5-5.1) g/dL Discharge Plan Discharge Clinical Impression: Hypertension Qualifiers: Hypertension type: primary hypertension Qualified Code(s): I10 - Essential (primary) hypertension Patient Disposition: Home Condition: Stable Instructions: Antibiotic Form Patient Language: Romanian Prescriptions: New lisinopril 10 mg tablet 10 mg PO DAILY Qty: 30 0RF No Action hydrochlorothiazide 12.5 mg tablet 12.5 mg PO DAILY 30 Days Qty: 30 0RF clonazepam [Klonopin] 0.5 mg tablet 0.5 mg PO BID Qty: 6 0RF ibuprofen 800 mg tablet 800 mg PO TID PRN (Reason: pain) Qty: 60 0RF cyclobenzaprine 5 mg tablet 5 mg PO TID PRN (Reason: muscle spasm) Qty: 21 0RF Follow-up/Referrals: Daquanroll,Nazia Soni MD [Primary Care Provider, Unknown] Time of Disposition: 15:23
== END 2025-02-12 15:36 | disposition home or self-care (01) ==
PROVIDERS: Emergency Provider Family Medicine; PCP Emergency Medicine
DX: I10 Essential (primary) hypertension (principal); F41.9 Anxiety disorder, unspecified; Z90.49 Acquired absence of other specified parts of digestive tract; Z87.891 Personal history of nicotine dependence; Z79.899 Other long term (current) drug therapy
CPT/HCPCS: 36415; 80053; 85025; 99283